=== PATIENT | male | born 1955 | race Hispanic/Latino ===

== ENCOUNTER 2017-10-24 11:20 | Emergency (ER) | payer SELFPAY ==
[2017-10-24 11:59] LABS: #Eosinphils 0.2 thou/uL (0.0-0.7); #Lymphocytes 1.7 thou/uL (1.20-3.40); #Monocytes 0.4 thou/uL (0.11-0.59); #Neutrophils 4.3 thou/uL (1.40-6.50); %Basophils 0.1 % (0.0-1.0); %Eosinophils 3.1 % (0.0-10.0); %Lymphocytes 25.6 % (21.0-51.0); %Monocytes 6.2 % (0.0-10.0); Hemoglobin 15.8 g/dL (14.0-18.0); Mean Corpuscular HGB CONC 32.7 g/dL (32.0-36.0); Mean Corpuscular Hemoglobin 31.5 pg (27.0-31.0); Mean Corpuscular Volume 96.4 fl (80.0-94.0); Mean Platelet Volume 7.2 fL (7.4-10.4); Platelet Count 251 thou/uL (130-400); RBC Distribution Width 11.6 % (11.5-14.5); Red Blood Cell (RBC) Count 5.02 mill/uL (4.70-6.10); White Blood Cell (WBC) Count 6.6 thou/uL (4.8-10.8)
--- NOTE | 2017-10-24 12:08 | RAD ---
PA AND LATERAL CHEST: Date: 10/24/17 HISTORY: Dyspnea. COMPARISON: 04/20/17. FINDINGS: Cardiac silhouette is stable in size. Pulmonary vasculature is within normal limits. Calcified granul princess overlies the right lateral mid lung zone. The lungs are clear. There has been no interval change from the prior exam. IMPRESSION: No acute cardiopulmonary process. POS: [facility]
[2017-10-24 12:27] LABS: CKMB 2.5 ng/mL (0-6.6); Troponin I Less than 0.010 ng/mL (< 0.028)
[2017-10-24 12:30] LABS: ALT (SGPT) 17 U/L (8-55); AST (SGOT) 18 U/L (5-34); Albumin 4.1 g/dL (3.5-5.0); Alkaline Phosphatase 73 U/L (40-150); Anion Gap 10 mmol/L (10-20); BUN (Urea Nitrogen) 15 mg/dL (8.4-25.7); Bilirubin, Total 0.5 mg/dL (0.2-1.2); CK (CPK) 142 U/L (30-200); Calc. Creatinine Clearance 0 mL/min (70-130); Calcium 9.3 mg/dL (7.8-10.44); Carbon Dioxide 28 mmol/L (22-29); Chloride 104 mmol/L (98-107); Estimated GFR-MDRD Greater than 90; Globulin 3.1 g/dL (2.4-3.5); Glucose 148 mg/dL (70-105); Potassium 4.2 mmol/L (3.5-5.1); Protein, Total 7.2 g/dL (6.0-8.3); Sodium 138 mmol/L (136-145)
== END 2017-10-24 13:25 | disposition home or self-care (01) ==
LOC: ERS 11:20
DX: R07.89 Other chest pain (principal); R60.0 Localized edema; J40 Bronchitis, not specified as acute or chronic; Z79.899 Other long term (current) drug therapy
CPT/HCPCS: 36415; 71045; 80053; 82553; 84484; 85025; 93005; 94760

== ENCOUNTER 2018-07-27 09:47 | Emergency (ER) | payer OTHER, SELFPAY ==
--- NOTE | 2018-07-27 10:24 | RAD ---
PA AND LATERAL CHEST: History: Cough. FINDINGS: Comparison is made with exam of 18. The heart size is normal. The aorta is tortuous. There is evidence of old granulomatous disease. The lungs are well expanded without focal areas of consolidation, pneumothoraces, or pleural effusions. T here are degenerative changes of the spine. IMPRESSION: No radiographic evidence of acute cardiopulmonary process. POS: [facility]
== END 2018-07-27 12:40 | disposition home or self-care (01) ==
LOC: ERS 09:47
DX: J20.9 Acute bronchitis, unspecified (principal); J42 Unspecified chronic bronchitis; Z79.899 Other long term (current) drug therapy
CPT/HCPCS: 71046; 94640; J7620

== ENCOUNTER 2018-08-20 07:38 | Emergency (ER) | payer OTHER ==
[2018-08-20] MEDS ORDERED: Albuterol Sulfate 2.5 mg/0.5 ml Neb ONE ×2 (08:00)
[2018-08-20] MEDS ORDERED: Dexamethasone 10 MG/ML VIAL ONE (08:02)
[2018-08-20] MEDS ORDERED: predniSONE 20 MG TAB ONE (08:02)
[2018-08-20] MEDS ORDERED: Lidocaine 1% PF 5 ML VIAL ONE ×2 (08:02→08:15)
[2018-08-20] MEDS ORDERED: cefTRIAXone\\ROCEPHIN 1 GM VIAL ONE ×2 (08:02→08:06)
[2018-08-20] MEDS ORDERED: cefTRIAXone\\ROCEPHIN 1 GM VIAL IM SCH (08:30)
--- NOTE | 2018-08-20 08:52 | RAD ---
SINGLE VIEW OF THE CHEST: COMPARISON: 10/24/2017. HISTORY: Cough and dyspnea. FINDINGS: A single view of the chest shows a normal-size cardiomediastinal silhouette. A calcified granuloma p rojects over the right lung. There is no evidence of consolidation or pleural effusion. Degenerativ e changes are seen in the spine. IMPRESSION: No evidence of acute cardiopulmonary disease. POS: [facility]
== END 2018-08-20 08:52 | disposition home or self-care (01) ==
LOC: ERS 07:38
DX: J20.9 Acute bronchitis, unspecified (principal); Z79.51 Long term (current) use of inhaled steroids
CPT/HCPCS: 71045; 87804; 96372; J0696; J1100; J2001; J7611; J7620

== ENCOUNTER 2019-02-27 12:57 | Outpatient (CLI) | payer OTHER ==
--- NOTE | 2019-02-27 13:31 | RAD ---
2 VIEW CHEST: Date: 02/27/19 INDICATION: Dyspnea. COMPARISON: 08/20/18. FINDINGS: Lungs appear clear of infiltrate. A calcified granuloma in the peripheral right lung is noted. Vascul ar markings normal. Heart size upper normal and stable. IMPRESSION: No acute findings. No interval change. POS: [facility]
== END 2019-02-27 12:58 | disposition home or self-care (01) ==
LOC: RAD 12:57
PROVIDERS: ATTEND Internal Medicine Pulmonary Disease
DX: R06.00 Dyspnea, unspecified (principal)
CPT/HCPCS: 71046

== ENCOUNTER 2019-06-10 05:25 | Emergency (ER) | payer OTHER ==
--- NOTE | 2019-06-10 07:40 | RAD ---
EXAM: Single view of the chest HISTORY: Dry cough COMPARISON: 08/20/2018 FINDINGS: Single view of the chest shows a normal sized cardiomediastinal silhouette. There is no nancie dence of consolidation, mass, or pleural effusion. Degenerative changes are seen in the spine. IMPRESSION: No evidence of acute cardiopulmonary disease
== END 2019-06-10 07:20 | disposition home or self-care (01) ==
LOC: ERS 05:25
DX: J45.901 Unspecified asthma with (acute) exacerbation (principal); Z79.51 Long term (current) use of inhaled steroids; Z79.2 Long term (current) use of antibiotics; Z79.52 Long term (current) use of systemic steroids
CPT/HCPCS: 71045; 94640; J7620

== ENCOUNTER 2020-03-20 00:35 | Emergency (ER) | payer OTHER ==
[2020-03-20] MEDS ORDERED: predniSONE 20 MG TAB ONE (01:06)
[2020-03-20] MEDS ORDERED: Albuterol Sulfate 2.5 mg/3 ml Neb ONE ×2 (01:14→02:31)
--- NOTE | 2020-03-20 08:17 | RAD ---
CHEST 1 VIEW: INDICATION: Asthma exacerbation. COMPARISON: Prior exam dated 06/10/2019. FINDINGS: Calcified granuloma of the right mid lung is stable. Mild cardiomegaly is stable-appearing. No pleu ral effusion or pneumothorax is evident. IMPRESSION: No acute cardiopulmonary abnormality. POS: [facility]
[2020-03-20 12:45] LABS: SARS-CoV-2 MS2 Positive; SARS-CoV-2 N Gene Negative; SARS-CoV-2 S Gene Negative; SARS-CoV-2 by NAA Not Detected (NotDetected); SARS-CoV-2 orf1ab Negative
== END 2020-03-20 03:17 | disposition home or self-care (01) ==
LOC: ERS 00:35
DX: J45.901 Unspecified asthma with (acute) exacerbation (principal); Z79.899 Other long term (current) drug therapy
CPT/HCPCS: 71045; 87635; J7512; J7611; J7620; U0003